=== PATIENT | male | born 1995 | race Caucasian/White ===

== ENCOUNTER 2016-10-26 05:18 | Emergency (ER) | payer SELFPAY ==
[~2016-10-26] VITALS: Ht 182.9 cm; Wt 69.0 kg
[~2016-10-26 05:18] MED LIST: SILV400T TOP; Z.0.NO CURRENT MEDS
[2016-10-26 05:22] VITALS: BP 132/72; PULSE 71; RESP 12; TEMP 97.1; O2SAT 96
--- NOTE | 2016-10-26 05:35 | PD ---
HPI Chief Complaint: left hand injury Time Seen by Provider: 05:29 Travel History International Travel<30 days: No Contact w/Intl Traveler<30days: No Traveled to known affect area: No History of Present Illness HPI The patient is a 20-year-old [id number] male who at 7:30 PM this evening punched a wall with his left hand. He complains of pain and swelling diffusely over the left hand. Specifically, he denies punching anyone in the mouth. He states his last tetanus shot was a grade. PFSH Past Medical History Cancer: No Cardiovascular Problems: No Endocrine: No Genitourinary: No Immune Disorder: No Musculoskeletal: No Neurologic: No Reproductive: No Respiratory: No Social History Alcohol Use: No Tobacco Use: No Substance Use: No Allergies-Medications (Allergen,Severity, Reaction): Coded Allergies: codeine (Verified Adverse Reaction, Unknown, 10/26/16) Reported Meds & Prescriptions Reported Meds & Active Scripts Active No Active Prescriptions or Reported Medications Review of Systems Except as stated in HPI: all other systems reviewed are Neg Physical Exam Narrative GENERAL: Well-nourished, well-developed patient in slight apparent distress with his left hand discomfort. His temperature is 97.1 but the rest of his vital signs are normal. SKIN: Focused skin assessment warm/dry. Multiple abrasions occur over the dorsum of these hand and at the MP joints but none of these are deep to the bone. There are no tendons exposed. None of these require suturing. HEAD: Normocephalic. EYES: No scleral icterus. No injection or drainage. NECK: Supple, trachea midline. No JVD or lymphadenopathy. CARDIOVASCULAR: Regular rate and rhythm without murmurs, gallops, or rubs. RESPIRATORY: Breath sounds equal bilaterally. No accessory muscle use. GASTROINTESTINAL: Abdomen soft, non-tender, nondistended. MUSCULOSKELETAL: No cyanosis, or edema. Good capillary refill and pinprick is present on all fingers. BACK: Nontender without obvious deformity. No CVA tenderness. Data Data Last Documented VS Vital Signs Date Time Temp Pulse Resp B/P (MAP) Pulse Ox O2 Delivery O2 Flow Rate FiO2 10/26/16 05:37 18 96 Room Air 10/26/16 05:22 97.1 71 132/72 (92) Orders Orders Ice/Cold Pack (10/26/16 05:29) Hand, Complete ([id number]) (10/26/16 05:29) Wound Care (10/26/16 05:35) MDM Medical Decision Making Medical Screen Exam Complete: Yes Emergency Medical Condition: Yes Medical Record Reviewed: Yes Interpretation(s) X-rays of the left hand show no fracture or dislocation. Differential Diagnosis Contusion left hand, fracture left hand, dislocation left hand, multiple abrasions left hand Narrative Course The patient contusions and abrasions of the left hand. No fractures are identified. 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 He is given bandage changes, anabolic ointment to change the bandage on a daily basis until adequately healed. Diagnosis Primary Impression: Contusion of left hand Additional Impression: Abrasion of left hand Additional Instructions: As we discussed, change the bandage daily and use anabolic ointment over the abrasions. Elevate your left hand to improve circulation and decrease chance of infection and return to emergency department if you have any problems. Scripts No Active Prescriptions or Reported Meds Disposition: 01 DISCHARGE HOME Condition: Stable Xu Oliver MD Oct 26, 2016 05:35
--- NOTE | 2016-10-26 06:10 | RADRPT ---
EXAM DATE/TIME: 10/26/2016 05:39 [facility] COMPARISON: No previous studies available for comparison. INDICATIONS : Left hand pain with swelling to the metacarpal region post punching a wall. MEDICAL HISTORY : None. SURGICAL HISTORY : None. ENCOUNTER: Initial ACUITY: 1 day PAIN SCORE: 8/10 LOCATION: Left upper extremity FINDINGS: There is a small avulsion fracture through the base of the fifth metacarpal. No dislocation. No other fractures are seen. CONCLUSION: 1. Small avulsion fracture through base of fifth metacarpal. Brayan Lechuga MD on October 26, 2016 at 6:07 Board Certified Radiologist. This report was verified electronically.
== END 2016-10-26 06:37 | disposition home or self-care (01) ==
LOC: PHED 05:18
DX: S62.317A Displaced fracture of base of fifth metacarpal bone, left hand, initial encounter for closed fracture (principal); S60.222A Contusion of left hand, initial encounter; S60.512A Abrasion of left hand, initial encounter; W22.09XA Striking against other stationary object, initial encounter
CPT/HCPCS: 73130; 99283